=== PATIENT | female | born 2000 | race Caucasian/White ===

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

== ENCOUNTER 2018-06-20 11:56 | Emergency (ER) | payer MEDICAID ==
[~2018-06-20] VITALS: Ht 157.5 cm; Wt 52.2 kg
[2018-06-20 12:00] VITALS: BP_SYST 135
[2018-06-20] MEDS ORDERED: LIDOCAINE VISCOUS 2%, 15 ML UDC MM ONE (12:45)
[2018-06-20] MEDS ORDERED: DIPHENHYDRAMINE INJ 50 MG/ML VIAL IM ONE (13:30)
[2018-06-20] MEDS ORDERED: KETOROLAC TROMETHAMINE 60 MG/2 ML VIAL IM ONE (13:30)
[2018-06-20 14:25] VITALS: BP_SYST 130
== END 2018-06-20 14:24 | disposition home or self-care (01) ==
LOC: SED 11:56
DX: T49.7X5A Adverse effect of dental drugs, topically applied, initial encounter (principal); R03.0 Elevated blood-pressure reading, without diagnosis of hypertension; Y92.89 Other specified places as the place of occurrence of the external cause
CPT/HCPCS: 96372; 99284; J1200; J1885; J2001

== ENCOUNTER 2019-08-30 16:40 | Emergency (ER) | payer MEDICAID ==
[~2019-08-30] VITALS: Ht 160 cm; Wt 54.4 kg
[2019-08-30 16:40] VITALS: BP_SYST 120
--- NOTE | 2019-08-30 16:40 | NUR ---
BROUGHT BACK TO BED #6 AND TRIAGED, REPORT GIVEN TO ADDY
--- NOTE | 2019-08-30 17:00 | NUR ---
pt arrives from home w/ c/o sore throat. Pt is afebrile.
--- NOTE | 2019-08-30 17:18 | NUR ---
ER at bedside examining patient.
--- NOTE | 2019-08-30 17:20 | NUR ---
breanna keith collected and sent to lab
[2019-08-30 17:55] VITALS: BP_SYST 120
--- NOTE | 2019-08-30 17:57 | NUR ---
Patient given written and verbal discharge instructions and verbalizes understanding. ER MD discussed with patient the results and treatment provided. Patient in stable condition. ID arm band removed. Rx of Dulcolax given. Patient educated on pain management and to follow up with PMD. Pain Scale 0/10. Opportunity for questions provided and answered. Medication side effect fact sheet provided.
== END 2019-08-30 17:57 | disposition home or self-care (01) ==
LOC: SED 16:40
DX: J02.8 Acute pharyngitis due to other specified organisms (principal); K59.09 Other constipation
CPT/HCPCS: 36415; 86403; 87081; 99283

== ENCOUNTER 2022-01-15 02:23 | Emergency (ER) | payer MEDICAID ==
[~2022-01-15] VITALS: Ht 157.5 cm; Wt 68.0 kg
[2022-01-15 02:30] VITALS: BP_SYST 154
[2022-01-15] MEDS ORDERED: DIPHENHYDRAMINE INJ 50 MG/ML VIAL IVP ONE ×2 (03:00→04:00)
[2022-01-15] MEDS ORDERED: METOCLOPRAMIDE HCL 10 MG/2 ML VIAL IVP ONE ×2 (03:00→04:00)
[2022-01-15] MEDS ORDERED: NACL 0.9% 1,000 ML IV ONE (03:00)
[2022-01-15 05:13] VITALS: BP_SYST 123
== END 2022-01-15 05:12 | disposition home or self-care (01) ==
LOC: SED 02:23
DX: G43.909 Migraine, unspecified, not intractable, without status migrainosus (principal)
CPT/HCPCS: 70450; 76376; 81025; 96361; 96374; 96375; 99284; J1200; J2765; J7030

== ENCOUNTER 2022-03-23 20:55 | Emergency (ER) | payer MEDICAID ==
--- NOTE | 2022-03-23 21:59 | NUR ---
CALLED, NO ANSWER
--- NOTE | 2022-03-23 22:34 | NUR ---
CALLED THREE TIMES NO ANSWER
== END 2022-03-23 22:32 | disposition left against medical advice (07) ==
LOC: SED 20:55
DX: N28.9 Disorder of kidney and ureter, unspecified (principal); Z53.21 Procedure and treatment not carried out due to patient leaving prior to being seen by health care provider

== ENCOUNTER 2023-02-15 13:02 | Emergency (ER) | payer MEDICAID ==
[~2023-02-15] VITALS: Ht 160 cm; Wt 68.0 kg
[2023-02-15 13:05] VITALS: BP_SYST 139
--- NOTE | 2023-02-15 13:05 | NUR ---
Patient triaged and placed in waiting room. VSS and patient appears in no acute distress at this time. Accompanied by MOTHER, awaiting available bed, and MD notified of need for MSE.
--- NOTE | 2023-02-15 14:05 | NUR ---
BROUGHT BACK TO BED #4 VIA WHEELCHAIR, MOTHER WITH PT. REPORT GIVEN TO BRUNO
--- NOTE | 2023-02-15 14:15 | NUR ---
Pt BIB mother. C/O insomnia for 3 days, anorexia, throat pain, inability to swallow. pt states scared of water. Denies NVD. Pt perception "going to ". Pt LMP 02/09. Pt states perception of health declining. Pt VSS. BROOK. AAOX3. Pt speaks full complete sentences.
[2023-02-15 14:54] LABS: BASOPHILS % (AUTO) 0.3 % (0.0-2.0); EOSINOPHILS # (AUTO) 0.1 K/uL (0.0-0.4); EOSINOPHILS % (AUTO) 1.2 % (0.0-4.0); HEMATOCRIT 40.9 % (36-48); LYMPHOCYTES # (AUTO) 2.4 K/uL (1.0-5.5); LYMPHOCYTES % (AUTO) 26.2 % (20.5-51.5); MEAN CORPUSCULAR HEMOGLOBIN 29 pg (27-31); MEAN CORPUSCULAR HGB CONC 34 % (32-36); MEAN CORPUSCULAR VOLUME 85 fL (79.0-98.0); MONOCYTES # (AUTO) 0.6 K/uL (0.0-1.0); MONOCYTES % (AUTO) 6.9 % (1.7-9.3); NEUTROPHILS # (AUTO) 5.9 K/uL (1.8-7.7); NEUTROPHILS % (AUTO) 65.4 % (40.0-70.0); PLATELET COUNT (AUTO) 282 K/uL (130-430); RED BLOOD CELL COUNT(AUTO) 4.82 MIL/uL (4.2-6.2); RED CELL DISTRIBUTION WIDTH 12.3 % (9.0-15.0); WHITE BLOOD COUNT (AUTO) 9.1 K/uL (4.8-10.8)
[2023-02-15 14:58] LABS: BILIRUBIN,URINE NEGATIVE (NEGATIVE); CLARITY/URINE CLEAR (CLEAR); COLOR,URINE YELLOW (YELLOW); GLUCOSE,URINE NEGATIVE (NEGATIVE); KETONES,URINE NEGATIVE (NEGATIVE); LEUKOCYTE ESTERASE ,URINE NEGATIVE (NEGATIVE); NITRITE, URINE NEGATIVE (NEGATIVE); PROTEIN URINE NEGATIVE (NEGATIVE); UROBILINOGEN,URINE 0.2 (0.2-1.0)
[2023-02-15 15:05] LABS: HCG,QUAL RESULT NEGATIVE (NEGATIVE)
[2023-02-15 15:10] LABS: BARBITURATE, URINE NEGATIVE (NEG <=200); BENZODIAZEPINE, URINE NEGATIVE (NEG <=150); CANNABINOID, URINE NEGATIVE (NEG <=50); COCAINE, URINE NEGATIVE (NEG <=150); METHAMPHETAMINES SCREEN,URINE NEGATIVE (NEG <=500); OPIATE, URINE NEGATIVE (NEG <=100); PHENCYCLIDINE SCREEN,URINE NEGATIVE (NEG <=25); UR TRICYCLIC ANTIDEPRESSANTS NEGATIVE (NEG <=300); URINE AMPHETAMINE NEGATIVE (NEG <=500); URINE METHADONE NEGATIVE (NEG <=200); URINE OXYCODONE SCREEN NEGATIVE (NEG <=100); URINE PROPOXYPHENE SCREEN NEGATIVE (NEG <=300)
[2023-02-15 15:18] LABS: BLOOD, URINE TRACE (NEGATIVE)
[2023-02-15 15:28] LABS: BACTERIA,URINE RARE /HPF (None Seen); RBC,URINE 0-3 /HPF (0-3); WBC,URINE NONE SEEN /HPF (0-3)
[2023-02-15 15:28] LABS: ANION GAP 11 (5-15); CALCIUM 9.1 mg/dL (8.4-11.0); CHLORIDE 103 mmol/L (98-107); CREATININE 0.74 mg/dL (0.55-1.30); GFR AFRICAN AMERICAN 124 mL/min (>90); GLUCOSE 91 mg/dL (70-99); UREA NITROGEN, BLOOD 9 mg/dL (8-21)
[2023-02-15 15:29] LABS: MUCUS,URINE None Seen /LPF (None Seen)
[2023-02-15 15:41] LABS: ALANINE AMINOTRANSFERASE 23 U/L (12-78); ALBUMIN 4.5 g/dL (3.4-4.8); ASPARTATE AMINOTRANSFERASE 18 U/L (10-37); FREE T4 (FREE THYROXINE) 1.2 ng/dL (0.6-1.6); THYROID STIMULATING HORMONE 0.88 uIu/mL (0.34-4.82); TOTAL BILIRUBIN 0.8 mg/dL (0.0-1.0)
[2023-02-15 15:43] LABS: ACETAMINOPHEN < 1 ug/mL (1-30); ALCOHOL, BLOOD < 3 mg/dL (<10)
[2023-02-15] MEDS ORDERED: ALPR0.25 PO ×2 (16:02→17:46)
--- NOTE | 2023-02-15 16:12 | NUR ---
Patient given written and verbal discharge instructions and verbalizes understanding. ER MD discussed with patient the results and treatment provided. Patient in stable condition. ID arm band removed. Rx of ALPRAZOLAM given. Patient educated on pain management and to follow up with PMD. Opportunity for questions provided and answered. Medication side effect fact sheet provided.
[2023-02-15 16:15] VITALS: BP_SYST 139
== END 2023-02-15 16:12 | disposition home or self-care (01) ==
LOC: SED 13:02
DX: G47.00 Insomnia, unspecified (principal); F41.9 Anxiety disorder, unspecified; R06.02 Shortness of breath; Z79.899 Other long term (current) drug therapy
CPT/HCPCS: 99285; 71045; 80307; 80053; 84703; 84439; 84443; 85025; 36415; 93005; 81025; 81000; G0482; G0480; G0481